=== PATIENT | male | born 1990 | race Caucasian/White ===

== ENCOUNTER 2018-02-06 20:45 | Emergency (ER) | payer SELFPAY ==
[~2018-02-06] VITALS: Ht 167.6 cm; Wt 108.0 kg
[2018-02-06 20:55] VITALS: BP 154/96
--- NOTE | 2018-02-06 21:02 | NUR ---
[facility] TAPIA MADE AWARE. PT ASSISTED TO LOBBY
--- NOTE | 2018-02-06 21:25 | NUR ---
PT TAKEN TO CT FROM [facility] GOLDSTEIN
--- NOTE | 2018-02-06 22:55 | NUR ---
PT TAKEN TO BED 3
--- NOTE | 2018-02-06 23:13 | NUR ---
Dr. Aggarwal evaluating patient at bedside.
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
[2018-02-06] MEDS ORDERED: IBUPROFEN 800 MG TAB PO ONE (23:30)
--- NOTE | 2018-02-07 00:02 | NUR ---
PT RETURN FROM RADIOLOGY
[2018-02-07 01:03] VITALS: BP 128/65
--- NOTE | 2018-02-07 01:04 | NUR ---
Patient discharged with v/s stable. Written and verbal after care instructions given and explained. Patient alert, oriented and verbalized understanding of instructions. Ambulatory with steady gait. All questions addressed prior to discharge. ID band removed. Patient advised to follow up with PMD. Rx of cyclobenzaprine and naprosyn given. Patient educated on indication of medication including possible reaction and side effects. Opportunity to ask questions provided and answered.
== END 2018-02-07 01:04 | disposition home or self-care (01) ==
LOC: MED 20:45
DX: S06.0X0A Concussion without loss of consciousness, initial encounter (principal); S16.1XXA Strain of muscle, fascia and tendon at neck level, initial encounter; V49.59XA Passenger injured in collision with other motor vehicles in traffic accident, initial encounter; Y93.89 Activity, other specified; Y92.488 Other paved roadways as the place of occurrence of the external cause; Y99.8 Other external cause status
CPT/HCPCS: 70450; 71046; 72125; 93005; 99284